=== PATIENT | female | born 2000 | race Two or more races ===

== ENCOUNTER 2022-04-18 15:06 | Emergency (ER) | payer OTHER ==
[~2022-04-18] VITALS: Ht 162.6 cm; Wt 57.2 kg
[2022-04-18] MEDS ORDERED: MACRODANTIN100 M1 PO (19:44)
== END 2022-04-18 19:56 | disposition home or self-care (01) ==
LOC: ER 15:06
DX: O23.42 Unspecified infection of urinary tract in pregnancy, second trimester (principal); Z3A.17 17 weeks gestation of pregnancy

== ENCOUNTER 2022-09-07 20:58 | Inpatient (IN) | payer OTHER ==
[~2022-09-07] VITALS: Ht 162.6 cm; Wt 69.9 kg
[~2022-09-07 20:58] MED LIST: MACRODANTIN100 M1 PO
[2022-09-07] MEDS ORDERED: PRENATAL TABLE1 EAC1 PO (22:43)
== END 2022-09-10 13:07 | disposition home or self-care (01) | DRG 807 ==
LOC: OBS/DEL 20:58 → OB/GYN 21:50 → LDR 21:50 → OB/GYN 09-08 03:26
PROVIDERS: ADMIT Specialist; ATTEND Specialist
PROC: 4A1HXCZ Monitoring of Products of Conception, Cardiac Rate, External Approach (ICD-10-PCS; 2022-09-07)
PROC: 10E0XZZ Delivery of Products of Conception, External Approach (ICD-10-PCS; principal; 2022-09-08)
PROC: 0KQM0ZZ Repair Perineum Muscle, Open Approach (ICD-10-PCS; 2022-09-08)
DX: O70.1 Second degree perineal laceration during delivery (principal); Z37.0 Single live birth; Z3A.37 37 weeks gestation of pregnancy; Z20.822 Contact with and (suspected) exposure to COVID-19